=== PATIENT | male | born 1970 | race African-American/Black ===

== ENCOUNTER 2021-09-27 12:23 | Emergency (ER) | payer BC, OTHER ==
[~2021-09-27] VITALS: Ht 185.4 cm; Wt 86.0 kg
[2021-09-27 15:17] LABS: BASOPHILS % 0.9 % (0.0-2.0); EOSINOPHILS % 3.9 % (0.0-5.0); HEMATOCRIT. 43.4 % (42.0-52.0); HEMOGLOBIN. 14.8 g/dL (14.0-18.0); LYMPHOCYTES % 24.9 % (20.0-50.0); MEAN CORPUSCULAR HEMOGLOBIN 33.5 pg (28.0-32.0); MEAN CORPUSCULAR VOLUME 98.6 fL (80.0-94.0); MEAN PLATELET VOLUME 7.8 fl (7.4-10.4); MONOCYTES % 14.8 % (2.0-8.0); NEUTROPHILS % 55.5 % (40.0-76.0); PLATELET 240 x1000/uL (130-400); RED CELL DISTRIBUTION WIDTH 13.9 % (11.6-14.6)
[2021-09-27 15:20] LABS: CHLORIDE 103 mEq/L (98-107)
[2021-09-27 15:31] LABS: ETHANOL BLOOD < 10 mg/dL
[2021-09-27] MEDS ORDERED: MORPHINE SULFATE 4 MG/ML CPJ (NOT FOR IM USE) IV NR (16:00)
[2021-09-27] MEDS ORDERED: ONDANSETRON HCL 4MG/2ML INJ IV NR (16:00)
[2021-09-27 17:00] VITALS: BP 119/78
[2021-09-27] MEDS ORDERED: ONDA4TAB50 MT (17:59)
[2021-09-27] MEDS ORDERED: DICY10CA88 MT (17:59)
[2021-09-27] MEDS ORDERED: ACET-2708 MT (17:59)
== END 2021-09-27 18:15 | disposition home or self-care (01) ==
LOC: ER 12:23
DX: R10.30 Lower abdominal pain, unspecified (principal); R07.89 Other chest pain; I49.1 Atrial premature depolarization; M54.9 Dorsalgia, unspecified
CPT/HCPCS: 36415; 71045; 74176; 80053; 80320; 83880; 84484; 85025; 93005; 96374; 96375; 99285; J2270; J2405; G0480

== ENCOUNTER 2024-04-04 12:04 | Emergency (ER) | payer SELFPAY ==
[~2024-04-04] VITALS: Ht 180.3 cm; Wt 85.0 kg
[~2024-04-04 12:04] MED LIST: ACET-2708 MT; DICY-18 MT; ONDA4TAB50 MT
[2024-04-04 12:12] VITALS: TEMP 98.2; O2SAT 97
[2024-04-04] MEDS ORDERED: CYCL5TAB3 MT (14:16)
[2024-04-04] MEDS ORDERED: IBUP-2030 MT (14:16)
[2024-04-04 14:42] VITALS: BP 106/79; PULSE 80; RESP 18
[2024-04-04] MEDS: HYDROCODONE/ACETAMINOPHEN 10/325MG TABLET PO ONE (14:42)
[2024-04-04] MEDS: IBUPROFEN 800MG TABLET PO NR (14:42)
== END 2024-04-04 14:46 | disposition home or self-care (01) ==
LOC: ER 12:06
DX: M54.2 Cervicalgia (principal); M54.50 Low back pain, unspecified; R68.84 Jaw pain; E78.00 Pure hypercholesterolemia, unspecified; F10.90 Alcohol use, unspecified, uncomplicated; V89.2XXA Person injured in unspecified motor-vehicle accident, traffic, initial encounter; Y93.89 Activity, other specified; Y92.89 Other specified places as the place of occurrence of the external cause; Y99.8 Other external cause status; Y90.9 Presence of alcohol in blood, level not specified
CPT/HCPCS: 70486; 72100; 99284